=== PATIENT | male | born 1995 | race Caucasian/White ===

== ENCOUNTER 2016-10-21 16:42 | Emergency (ER) | payer OTHER ==
--- NOTE | ~2016-10-21 | CR72 ---
[facility] A Service of [facility] & [facility] RADIOLOGY TEXT RESULTS PATIENT: GAGANDEEP LEE LOCATION: CFTX : 95 UNIT #: [id number] AGE: [address]: Supriya Good APRN SEX: M ORDER DR: [id number] [facility] [address] [place], [place] [address] [id number] E MR#: [id number] Acc #: [id number] NAME: GAGANDEEP LEE : 1995 SEX: M STUDY DATE/TIME: 10/21/2016 19:58 UNIT: [facility] ROOM: STUDY DESCRIPTION: CR Chest Single View Portable Attending Physician: Supriya Good A.P.R.N. Ordering Physician: Supriya Good A.P.R.N. Primary Care Physician: No Primary Care Physician MEDICAL IMAGING REPORT This report is preliminary unless electronic signature is present EXAM Portable chest x-ray, 10/21/2016. HISTORY Cough. Began 10/20/2016. Cough, headache, body ache. FINDINGS AP radiograph of the chest is presented. No comparisons. Heart and mediastinum are normal in size and contour. The lungs are well inflated. No acute pulmonary disease, pleural effusion or pneumothorax. No suspicious nodule. Bony structures unremarkable. Visualized upper abdomen unremarkable. Dictated by... John Barba M.D. THIS IS AN ELECTRONICALLY VERIFIED REPORT John Barba M.D. at 10/24/2016 5:50 PM EMMIE/bri TD: 10/22/2016 10:47 JOB #: [id number] MEDICAL IMAGING REPORT Page 1 of 1 COPY
[2016-10-21 19:59] LABS: URINE SOURCE CLEAN CATCH
[2016-10-21 20:07] LABS: BASOPHIL% 0.6 % (0-2.5); EOSINOPHIL# 0.7 X10e3 (0-0.7); EOSINOPHIL% 11.3 % (0.0-7.0); HEMATOCRIT 45.8 % (38.0-50.0); LYMPHOCYTE# 3.1 X10e3 (1.0-3.5); LYMPHOCYTE% 49.4 % (17.0-45.0); MEAN CELL VOLUME 89.4 FL (83-96); MEAN CORPUSCULAR HEMOGLOBIN 29.2 PG (28-34); MEAN CORPUSCULAR HGB CONC 32.6 g/dL (30-36); MEAN PLATELET VOLUME 9.8 FL (6.5-11.5); MONOCYTE# 0.6 X10e3 (0-1.0); NEUTROPHIL# 1.9 X10e3 (1.5-7.1); NEUTROPHIL% 29.7 % (40-75); PLATELET COUNT 173 X10e3 (140-420); RED BLOOD COUNT 5.13 X10e (3.90-5.60); RED CELL DISTRIBUTION WIDTH 13.5 % (11.0-15.5); WHITE BLOOD COUNT 6.3 X10e3 (4.0-10.5)
[2016-10-21 20:07] LABS: URINE APPEARANCE CLEAR; URINE BILIRUBIN NEG (NEG); URINE BLOOD NEG (NEG); URINE COLOR YELLOW; URINE GLUCOSE NEG (NEG); URINE KETONE NEG (NEG); URINE LEUKOCYTE ESTERASE NEG (NEG); URINE NITRATE NEG (NEG); URINE PROTEIN NEG (NEG); URINE SPECIFIC GRAVITY 1.023 (1.003-1.035)
[2016-10-21 20:11] LABS: DIFF IND NO
[2016-10-21 20:17] LABS: CULTURE INDICATED? NO
[2016-10-21 20:19] LABS: PARTIAL THROMBOPLASTIN TIME 26.1 SECONDS (23.5-31.3); PROTHROMBIN TIME (PATIENT) 11.3 SECONDS (10.0-11.7)
[2016-10-21 20:44] LABS: ALBUMIN SERUM 4.6 g/dL (3.5-5.0); BILIRUBIN, DIRECT 0.1 mg/dL (0.0-0.2); BILIRUBIN,INDIRECT 1.1 mg/dL (0.0-0.9); BILIRUBIN,TOTAL 1.2 mg/dL (0.2-2.0); BUN/CREATININE RATIO 15.45; CALCIUM SERUM 9.7 mg/dL (8.4-10.2); CREATININE SERUM 1.1 mg/dL (0.6-1.4); GLOM FILT RATE Estimated 95.5 mL/min (>60); POTASSIUM 4.3 mmol/L (3.5-5.1); PROTEIN TOTAL SERUM 8.1 g/dL (6.0-8.3)
[2016-10-26 10:50] LABS: CHLAMYDIA TRACH Not Detected (Not Detected); N GONOR Not Detected (Not Detected)
== END 2016-10-21 21:20 | disposition home or self-care (01) ==
LOC: CFTX 16:42 → CED 16:42 → CFTX 20:09
PROVIDERS: Nurse Practitioner
DX: J06.9 Acute upper respiratory infection, unspecified (principal)
CPT/HCPCS: 36415; 71010; 80048; 80076; 81003; 85025; 85610; 85730; 87491; 87591; 87651; 99283